=== PATIENT | female | born 1960 | race Caucasian/White ===

== ENCOUNTER → 2020-08-22 | Outpatient (CLI) | payer OTHER ==
--- NOTE | 2020-08-23 14:23 | PE ---
PA and lateral chest. HISTORY: Cough. COMPARISON: Chest dated 07/12/2018. FINDINGS: There is a central venous catheter in the SVC. The lungs are clear consolidative or interstitial opacity. There is no pleural effusion or pneumothorax. There is a hiatal hernia which was noted previously. The osseous structures are intact. IMPRESSION: No evidence of acute cardiopulmonary disease. There is a hiatal hernia.
== END | disposition home or self-care (01) ==
LOC: RADPETMAIN 14:58
PROVIDERS: ATTEND Internal Medicine Critical Care Medicine
DX: C78.00 Secondary malignant neoplasm of unspecified lung (principal); R91.8 Other nonspecific abnormal finding of lung field; J98.4 Other disorders of lung; R59.0 Localized enlarged lymph nodes
CPT/HCPCS: 78815; A9552